=== PATIENT | male | born 1975 | race Caucasian/White ===

== ENCOUNTER → 2024-08-19 08:11 | Outpatient (BNVA) | payer OTHER, SELFPAY | PROVIDERS: Family Provider Family Medicine; Referring Provider Nurse Practitioner; Visit Provider Nurse Practitioner | DX: M17.11 Unilateral primary osteoarthritis, right knee; M21.061 Valgus deformity, not elsewhere classified, right knee; Z68.41 Body mass index [BMI] 40.0-44.9, adult | CPT/HCPCS: 73560; 73565 ==

== ENCOUNTER → 2024-11-20 08:11 | Outpatient (BNVA) | payer OTHER, SELFPAY | PROVIDERS: Family Provider Family Medicine; Visit Provider Nurse Practitioner | DX: M17.11 Unilateral primary osteoarthritis, right knee (principal); M21.061 Valgus deformity, not elsewhere classified, right knee; E66.9 Obesity, unspecified; Z68.41 Body mass index [BMI] 40.0-44.9, adult | CPT/HCPCS: 73560; 73565 ==

== ENCOUNTER → 2024-11-22 08:08 | Outpatient (BNVA) | payer OTHER, SELFPAY | PROVIDERS: Family Provider Family Medicine; Visit Provider Nurse Practitioner | DX: M25.511 Pain in right shoulder (principal) | CPT/HCPCS: 73030 ==

== ENCOUNTER → 2025-01-27 13:10 | Outpatient (BNVA) | payer OTHER, SELFPAY | PROVIDERS: Family Provider Family Medicine; Visit Provider Nurse Practitioner | DX: M17.11 Unilateral primary osteoarthritis, right knee (principal); S49.91XA Unspecified injury of right shoulder and upper arm, initial encounter; M19.011 Primary osteoarthritis, right shoulder; X58.XXXA Exposure to other specified factors, initial encounter | CPT/HCPCS: 73030; 73560; 73565 ==

== ENCOUNTER 2025-06-02 14:05 | Outpatient (CLI) | payer OTHER, SELFPAY ==
--- NOTE | 2025-06-02 14:30 | MR_ITS ---
WS: [id number] MRI RIGHT SHOULDER HISTORY: Fell 6 months ago. RIGHT shoulder pain. COMPARISON: Radiograph 01/27/2025 TECHNIQUE: Multiplanar sequences of the shoulder joint are submitted. Marked AC joint arthritis. Complete loss of the normal joint space. Hypertrophic osteophytes narrowing of the AC joint. Mild encroachment upon the myotendinous portion of the supraspinatus. Remote healed fracture mid RIGHT clavicle. Enthesopathy along the distal undersurface of the acromion with impingement. Empty bicipital groove. There is fluid along the biceps tendon sheath. Normal biceps tendon is not identified. Markedly high riding humeral head impinging upon the undersurface of the acromion with mild remodeling. Loss of the cartilage along the superolateral humeral head. Complete tear of the supraspinatus tendon with retraction to the superior medial humeral head. Insertion site tear with interstitial extension of the tear involving the infraspinatus tendon. High-grade tear distal subscapularis tendon. There is fluid in the expected location of the distal subscapularis tendon. There may be a few small remnants of the tendon present. Coracohumeral ligament appears appropriate. Degenerative changes in the labrum. No definite tears are identified. MR/MR shoulder RT wo con* [id number] IMPRESSION: 1. Full-thickness tear with retraction supraspinatus tendon. 2. Moderate atrophy of the supraspinatus muscle. 3. Moderate size insertion site tear with interstitial extension of the tear i nvolving the infraspinatus tendon. 4. High-grade tear distal subscapularis tendon. 5. Marked AC joint arthritis. 6. High riding humeral head with remodeling of the distal acromion. 7. Absent biceps tendon in the bicipital groove. Torn and or dislocated tendon . 8. Large gap filled with fluid near the rotator cuff interval in the subscapul jazmyne tendon insertion site. 9. Remote healed fracture RIGHT clavicle.
== END 2025-06-02 14:06 | disposition home or self-care (01) ==
LOC: RAD 14:06
PROVIDERS: Family Provider Family Medicine; PCP Nurse Practitioner; Visit Provider Nurse Practitioner
DX: M19.011 Primary osteoarthritis, right shoulder (principal); M62.511 Muscle wasting and atrophy, not elsewhere classified, right shoulder; S46.011A Strain of muscle(s) and tendon(s) of the rotator cuff of right shoulder, initial encounter; M89.311 Hypertrophy of bone, right shoulder; S46.211A Strain of muscle, fascia and tendon of other parts of biceps, right arm, initial encounter; Z87.81 Personal history of (healed) traumatic fracture
CPT/HCPCS: 73221

== ENCOUNTER → 2025-08-08 12:54 | Outpatient (BNVA) | payer OTHER, SELFPAY | PROVIDERS: Family Provider Family Medicine; PCP Nurse Practitioner; Visit Provider Nurse Practitioner | DX: M21.061 Valgus deformity, not elsewhere classified, right knee (principal); M17.11 Unilateral primary osteoarthritis, right knee | CPT/HCPCS: 73560; 73565 ==

== ENCOUNTER 2025-08-21 14:34 | Outpatient (CLI) | payer OTHER, SELFPAY ==
--- NOTE | 2025-08-21 14:45 | CT_ITS ---
WS: [id number] CT RIGHT knee, noncontrast HISTORY: right knee osteoarthritis TECHNIQUE: Protocol for [facility] total knee replacement has been obtained. This includes axial imaging through the RIGHT hip, RIGHT knee and RIGHT ankle. DLP: 1018.56 mGy.cm COMPARISON: 08/08/2025 RIGHT hip: Mild motion artifact. No fractures or dislocation. RIGHT knee: Marked valgus deformity. Tricompartment osteoarthritis and large osteophytes with narrowing of the joint spaces. No acute fracture. No significant joint effusion. Tiny Carpio's cyst. RIGHT ankle: Advanced degenerative changes at the ankle. Osteophytes and joint space narrowing. CT/CT knee RT [facility] [id number] IMPRESSION: CT imaging provided for [facility] robotic total knee replacement.
== END 2025-08-21 14:35 | disposition home or self-care (01) ==
LOC: RAD 14:35
PROVIDERS: Family Provider Family Medicine; PCP Nurse Practitioner; Visit Provider Nurse Practitioner
DX: M21.061 Valgus deformity, not elsewhere classified, right knee (principal); M17.11 Unilateral primary osteoarthritis, right knee
CPT/HCPCS: 73700

== ENCOUNTER → 2025-09-09 10:47 | Outpatient (BNVA) | payer OTHER, SELFPAY | PROVIDERS: Family Provider Family Medicine; PCP Nurse Practitioner; Visit Provider Family Medicine | DX: Z01.818 Encounter for other preprocedural examination (principal); M17.11 Unilateral primary osteoarthritis, right knee | CPT/HCPCS: 80053; 81000; 85025 ==